=== PATIENT | male | born 1995 | race Hispanic/Latino ===

== ENCOUNTER 2025-02-06 13:39 | Emergency (ER) | payer OTHER, SELFPAY ==
[2025-02-06 13:40] VITALS: BP 140/99; PULSE 102; RESP 16; TEMP 36.6; O2SAT 97; BMI 26.1
--- NOTE | 2025-02-06 13:56 | ED.RN ---
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 PT. WILL BE INSTRUCTED TO F/U WITH [facility] FOR DRUG AND ALCOHOL TESTING
--- NOTE | 2025-02-06 14:24 | RAD_ITS ---
PROCEDURE: ANKLE MIN 3 VIEWS 02/06/2025 REASON FOR EXAM: INJURY. Work injury. Dorsal foot pain and swelling. TECHNIQUE: Procedure Code: RADANK Modality: DX Procedure: ANKLE MIN 3 VIEWS Laterality: Right COMPARISON: None. FINDINGS: BONES: No acute fracture or focal osseous lesion. JOINTS: No dislocation. The joint spaces are normal. SOFT TISSUES: Needle-like radiodense foreign body at midline in the plantar soft tissues below the tarsometatarsal region. RAD/Ankle min 3 Views IMPRESSION: 1. No acute fracture or dislocation. 2. Foreign body in the plantar soft tissues. Reading Location: [id number]
--- NOTE | 2025-02-06 14:24 | RAD_ITS ---
PROCEDURE: FOOT MIN 3 VIEWS 02/06/2025 REASON FOR EXAM: INJURY. Work injury. Dorsal foot pain and swelling. TECHNIQUE: Procedure Code: RADFO Modality: DX Procedure: FOOT MIN 3 VIEWS Laterality: Right COMPARISON: None. FINDINGS: BONES: No acute fracture or focal osseous lesion. JOINTS: No dislocation. The joint spaces are normal. SOFT TISSUES: Linear radiodense foreign body measuring 6.5 mm in the midline plantar soft tissues below the tarsometatarsal region. RAD/Foot min 3 Views IMPRESSION: 1. No acute fracture or dislocation. 2. Radiodense foreign body in the plantar soft tissues. Reading Location: [id number]
--- NOTE | 2025-02-06 15:07 | ED.RN ---
Pt expressed desire to leave without being seen by provider. 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 Pt declined to wait and be seen
--- NOTE | 2025-02-06 15:26 | EDS_ITS ---
HPI History of Present Illness Chief Complaint: Lower Extremity Injury Narrative Narrative: Before I evaluated the patient he eloped from the emergency department. I did not speak with the patient, take a HPI or complete a physical exam. PFSH PFSH Medical History no medical history Allergy/AdvReac Type Severity Reaction Status Date / Time No Known Allergies Allergy Verified 02/06/25 13:51 Surgical History no surgical history Social History Smoking Status: Light Smoker (<10/day) EXAM Physical Exam Const Vital Signs: 02/06/25 13:40 Temperature 97.9 F Temperature Source Temporal Pulse Rate 102 H Respiratory Rate 16 Blood Pressure 140/99 H Blood Pressure Mean 112 Pulse Ox 97 MDM MDM Radiography Diagnostic Testing: Clinical Impression(s) from Imaging Studies Ankle X-Ray 02/06/25 14:24 IMPRESSION: 1. No acute fracture or dislocation. 2. Foreign body in the plantar soft tissues. Reading Location: [facility] [place] Foot X-Ray 02/06/25 14:24 IMPRESSION: 1. No acute fracture or dislocation. 2. Radiodense foreign body in the plantar soft tissues. Reading Location: [facility] [place] Discharge Plan Triage Chief Complaint: Lower Extremity Injury ED Provider: Jessica García Dx/Rx/DC Orders Primary Care Provider: Care Physician,No Primary Print Language: [place] Disposition Disposition: LEFT WITHOUT BEING SEEN Discharge Date/Time: 02/06/25 15:10
== END 2025-02-06 15:10 | disposition left against medical advice (07) ==
PROVIDERS: Emergency Provider Student in an Organized Health Care Education/Training Program; Visit Provider Student in an Organized Health Care Education/Training Program
DX: Z53.21 Procedure and treatment not carried out due to patient leaving prior to being seen by health care provider (principal)
CPT/HCPCS: 73610; 73630; 99281